=== PATIENT | male | born 1975 | race Caucasian/White ===

== ENCOUNTER 2021-04-17 16:43 | Emergency (ER) | payer OTHER, BC ==
[2021-04-17] MEDS ORDERED: Sodium Chloride 0.9% 10 ML Syringe FLUSH PRN (16:54)
[2021-04-17] MEDS ORDERED: Aspirin 81 MG Tab.Chew PO ONE (16:55)
[2021-04-17] MEDS ORDERED: Aspirin 81 MG Tab.Chew ONE (17:18)
--- NOTE | 2021-04-17 17:20 | EDM.PDOC ---
ED HPI GENERAL MEDICAL PROBLEM - General Chief Complaint: Chest Pain Stated Complaint: chest pain Time Seen by Provider: 04/17/21 16:54 Source of Information: Reports: Patient History Limitations: Reports: No Limitations - History of Present Illness INITIAL COMMENTS - FREE TEXT/NARRATIVE: Patient comes emergency department today from home with concerns of sharp shooting stabbing intermittent left chest pain. This patient denies any history of cardiac disease hypertension diabetes or hyperlipidemia. He does have some family history of cardiac disease. Since yesterday he has had intermittent sharp shooting stabbing chest pain on the anterior left axillary crease on his chest. It is tender to palpation. He has had no recent falls trauma or injury. No midsternal chest pain. No shortness of breath difficulty breathing. He relates that he has had a common cold over the past couple of days he has been coughing a little bit more than normal. His Covid test was negative. No fever no chills. No abdominal pain nausea vomiting. No hematuria dysuria urinary frequency. No palpitations weakness dizziness lightheadedness or syncope. The pain does not radiate anywhere. Does not get worse with deep breath cough movement. It does by palpation. chest Pain Score (Numeric/FACES): 7 - Related Data Allergies Allergy/AdvReac Type Severity Reaction Status Date / Time No Known Allergies Allergy Verified 04/17/21 16:47 Home Meds: Home Meds predniSONE [Prednisone] 5 mg PO DAILY 04/17/21 [History] ED ROS GENERAL - Review of Systems Review Of Systems: Comprehensive ROS is negative, except as noted in HPI. ED EXAM, GENERAL - Physical Exam Exam: See Below Exam Limited By: No Limitations General Appearance: Alert, WD/WN, No Apparent Distress Eye Exam: Bilateral Eye: PERRL Ears: Normal External Exam Nose: Normal Inspection Throat/Mouth: Normal Inspection Head: Atraumatic, Normocephalic Neck: Normal Inspection, Supple, Non-Tender, Lymphadenopathy (L) Respiratory/Chest: No Respiratory Distress, Lungs Clear, Normal Breath Sounds, No Accessory Muscle Use. No: Chest Non-Tender (He has some very mild tenderness on the left axillary anterior crease. There is no bruising swelling ecchymosis bony deformity. No soft tissue lesions lumps bumps. No bruising.) Cardiovascular: Normal Peripheral Pulses, Regular Rate, Rhythm, No JVD, No Murmur, No Rub Peripheral Pulses: 2+: Radial (L), Radial (R), Posterior Tibial (L), Posterior Tibial (R), Dorsalis Pedis (L), Dorsalis Pedis (R) GI/Abdominal: Normal Bowel Sounds, Soft, Non-Tender (Male) Exam: Deferred Rectal (Males) Exam: Deferred Back Exam: Normal Inspection, Full Range of Motion Extremities: Normal Inspection, Normal Range of Motion, Non-Tender, No Pedal Edema, Normal Capillary Refill Neurological: Alert, Oriented, CN II-XII Intact Psychiatric: Normal Affect, Normal Mood Skin Exam: Warm, Dry, Intact, Normal Color, No Rash Lymphatic: No Adenopathy Course - Orders/Labs/Meds Orders: Active Orders 24 hr Category Date Time Status Chest 2V [CR] Urgent Exams 04/17/21 16:54 Taken Peripheral IV Insertion Adult [OM.PC] Stat Oth 04/17/21 16:54 Ordered Labs: Laboratory Tests 04/17/21 04/17/21 04/17/21 Range/Units 17:07 17:07 17:07 WBC 8.5 (4.0-10.2) K/uL RBC 5.10 (4.33-5.41) M/uL Hgb 16.2 (13.1-16.8) g/dL Hct 46.8 (39.0-49.0) % MCV 91.8 (84.0-98.0) fL MCH 31.8 (28.2-33.3) pg MCHC 34.6 (31.7-36.0) g/dL RDW 13.0 (11.2-14.1) % Plt Count 195 (150-350) K/uL Neut % (Auto) 67.3 (45.0-80.0) % Lymph % (Auto) 19.9 (10.0-50.0) % [place] % (Auto) 11.8 (2.0-14.0) % Eos % (Auto) 0.8 (0.0-5.0) % Baso % (Auto) 0.2 (0.0-2.0) % Neut # (Auto) 5.72 (1.40-7.00) K/uL Lymph # (Auto) 1.69 (0.50-3.50) K/uL [place] # (Auto) 1.00 (0.00-1.00) K/uL Eos # (Auto) 0.07 (0.00-0.50) K/uL Baso # (Auto) 0.02 (0.00-0.20) K/uL PT 10.3 (9.5-12.0) SEC INR 1.0 APTT 23.4 L (24.5-32.8) SEC Sodium 140 (136-145) mmol/L Potassium 4.2 (3.5-5.1) mmol/L Chloride 107 (98-107) mmol/L Carbon Dioxide 24.1 (21.0-32.0) mmol/L Anion Gap 8.9 (7-15) meq/L BUN 22 H (7-18) mg/dL Creatinine 0.98 (0.51-1.17) mg/dL Est Cr Clr Drug Dosing 104.48 mL/min Estimated GFR (MDRD) > 60 mL/min Glucose 103 H (70-99) mg/dL Calcium 8.4 L (8.5-10.1) mg/dL Total Bilirubin 0.7 (0.2-1.0) mg/dL AST 24 (15-37) U/L ALT 51 (12-78) U/L Alkaline Phosphatase 56 (46-116) IU/L Troponin I High Sens 5 (<=76) ng/L Total Protein 6.7 (6.4-8.2) g/dL Albumin 3.6 (3.4-5.0) g/dL Meds: Medications Discontinued Medications Generic Name Dose Route Start Last Admin Trade Name Annabel PRN Reason Stop Dose Admin Aspirin 324 mg 04/17/21 16:55 04/17/21 17:19 Aspirin 81 Mg Tab.Chew PO 04/17/21 16:56 324 mg ONETIME ONE Administration Aspirin Confirm 04/17/21 17:18 04/17/21 18:00 Aspirin 81 Mg Tab.Chew Administered 04/17/21 17:19 Not Given Dose 81 mg .ROUTE .STK-MED ONE Ketorolac Tromethamine 30 mg 04/17/21 17:52 04/17/21 17:58 Ketorolac 30 Mg/Ml Sdv IVPUSH 04/17/21 17:53 30 mg ONETIME ONE Administration Sodium Chloride 10 ml 04/17/21 16:54 Sodium Chloride 0.9% 10 Ml Syringe FLUSH ASDIRECTED PRN Keep Vein Open - Radiology Interpretation Free Text/Narrative:: Chest x-ray initially reviewed extemporaneously by myself shows no acute hemopneumothorax infiltrate effusion. Radiological review to follow. - Re-Assessments/Exams Free Text/Narrative Re-Assessment/Exam: 04/17/21 17:20 IV was established labs were drawn. EKG initially reviewed extemporaneously by myself. Shows normal sinus rhythm without ST elevation or depression. 324 of aspirin given orally. Laboratory evaluation is really unremarkable. Normal CBC, CMP with a glucose of 1 3 calcium 8.4 BUN 22 otherwise negative. Troponin is negative. His EKG is unremarkable. 04/17/21 18:49 His work-up is really unremarkable. His symptoms have been going on for most 24 hours. Clinically this is musculoskeletal in nature. Not cardiac. He was given ketorolac prior to discharge. We will treat him symptomatically. Anything new or worse he is to recheck. Return to the emergency department new or worsening symptoms. Discharge directions as below are explained to the pat ient was comfortable this plan his questions were answered. Departure - Departure Time of Disposition: 17:52 Disposition: Home, Self-Care 01 Clinical Impression: Non-cardiac chest pain, Musculoskeletal chest pain Instructions: Chest Wall Pain, [id number], Nonspecific Chest Pain, Adult, [id number] Referrals: Dale Phipps PA [Primary Care Provider] - Forms: ED Department Discharge Additional Instructions: Tylenol and or Ibuprofen as needed for pain. Ice or heat to the sore area which ever works best. Return to the ED if new or worsening symptoms. Follow up with PCP if new or worsening symptoms. Sepsis Event Note (ED) - Evaluation Sepsis Screening Result: No Definite Risk - My Orders Last 24 Hours: My Active Orders 04/17/21 16:54 Chest 2V [CR] Urgent Peripheral IV Insertion Adult [OM.PC] Stat - Assessment/Plan Last 24 Hours: My Active Orders 04/17/21 16:54 Chest 2V [CR] Urgent Peripheral IV Insertion Adult [OM.PC] Stat
--- NOTE | 2021-04-17 17:21 | PCM.EKG ---
#1 Interpretation EKG Date: 04/17/21 Time: 17:01 Rhythm: NSR Rate (Beats/Min): 77 [place]: Normal P-Wave: Present QRS: Normal ST-T: Normal QT: Normal Comparison: NA - No Prior EKG
[2021-04-17 17:35] LABS: ANION GAP 8.9 meq/L (7-15); CHLORIDE,CL 107 mmol/L (98-107); SODIUM,NA 140 mmol/L (136-145)
[2021-04-17 17:36] LABS: PTT,PARTIAL THROMBOPLSTIN TIME 23.4 SEC (24.5-32.8)
[2021-04-17] MEDS ORDERED: Ketorolac 30 MG/ML SDV IVPUSH ONE (17:52)
== END 2021-04-17 18:04 | disposition home or self-care (01) ==
LOC: LL.ED 16:43
DX: R07.89 Other chest pain (principal)
CPT/HCPCS: 36415; 71046; 80053; 84484; 85025; 85610; 85730; 93005; 96374; 99284; 99285-25; A9270-GY; J1885